=== PATIENT | female | born 1945 | race Caucasian/White ===

== ENCOUNTER 2017-01-31 16:02 | Emergency (ER) | payer MEDICARE, OTHER ==
[~2017-01-31] VITALS: Ht 172.7 cm; Wt 99.8 kg
[~2017-01-31 16:02] MED LIST: CALCIUM600 MG PO; CEPHALEXIN500 MG PO; PREVACID30 MG PO
[2017-01-31] MEDS ORDERED: TRIMETHOPRIM100 MG PO (16:17)
[2017-01-31] MEDS ORDERED: NORCO 5-325 TA1 EACH PO (17:22)
== END 2017-01-31 17:22 | disposition home or self-care (01) ==
LOC: ED 16:02
DX: S90.122A Contusion of left lesser toe(s) without damage to nail, initial encounter (principal); K21.9 Gastro-esophageal reflux disease without esophagitis; Z90.710 Acquired absence of both cervix and uterus; Z90.49 Acquired absence of other specified parts of digestive tract; Z88.8 Allergy status to other drugs, medicaments and biological substances; Z79.2 Long term (current) use of antibiotics; Z79.899 Other long term (current) drug therapy; W22.8XXA Striking against or struck by other objects, initial encounter; Y93.89 Activity, other specified
CPT/HCPCS: 73630; 99283

== ENCOUNTER 2018-05-24 09:37 | Emergency (ER) | payer MEDICARE, OTHER ==
[~2018-05-24] VITALS: Ht 172.7 cm; Wt 99.8 kg
[~2018-05-24 09:37] MED LIST changes: +BACTRIM DS TAB1 EACH PO; +KEFLEX500 MG PO; +MACROBID 100 M100 MG PO; +NORCO 5-325 TA1 EACH PO; +TRIMETHOPRIM100 MG PO
== END 2018-05-24 09:52 | disposition home or self-care (01) ==
LOC: ED 09:37
DX: Z00.8 Encounter for other general examination (principal)